=== PATIENT | male | born 1985 | race Caucasian/White ===

== ENCOUNTER 2016-06-06 19:35 | Emergency (ER) | payer OTHER ==
[2016-06-06 19:35] VITALS: BMI 20.1
[2016-06-06 19:53] VITALS: RESP 16; TEMP 98.8
[2016-06-06] MEDS ORDERED: Oxycodone/Acetaminophen 5/325 mg Tab PO STA (19:57)
--- NOTE | 2016-06-06 20:03 | ED PDOC ---
Arrival/HPI - General Chief Complaint: Dental Pain Time Seen by Provider: 06/06/16 19:55 Historian: Patient - History of Present Illness Narrative History of Present Illness (Text): 06/06/16 19:59 30 y/o male, no pmh, nkda, c/o lt. upper molar pain x 2 days with no fall or trauma. aching pain, aggravated by chewing, no pain medications taken at home, no fever or chills, feels the left sided facial is swollen, no night sweat, no dizziness, no fever or chills, no other medical or psychological complaints. Past Medical History - Provider Review Nursing Documentation Reviewed: Yes - Past Medical History Past Medical History: No Previous - Psychiatric Hx Psychophysiologic Disorder: No Hx Substance Use: No - Past Surgical History Past Surgical History: No Previous - Surgical History Hx Appendectomy: Yes Hx Tonsillectomy: Yes - Anesthesia Hx Anesthesia: Yes Hx Anesthesia Reactions: No Hx Malignant Hyperthermia: No - Suicidal Assessment Feels Threatened In Home Enviroment: No Family/Social History - Physician Review Nursing Documentation Reviewed: Yes Family/Social History: Unknown Family HX Smoking Status: Never Smoked Hx Alcohol Use: No Hx Substance Use: No Hx Substance Use Treatment: No Allergies/Home Meds Allergies/Adverse Reactions: Allergies No Known Allergies Allergy (Verified 06/06/16 19:46) Review of Systems - Review of Systems Constitutional: absent: Fatigue, Fevers ENT: Other (toothache) Respiratory: absent: SOB, Cough Cardiovascular: absent: Chest Pain Gastrointestinal: absent: Abdominal Pain, Diarrhea, Nausea, Vomiting Neurological: absent: Headache, Dizziness, Focal Weakness, Gait Changes, Speech Changes, Facial Droop, Disequilibrium, Seizure Physical Exam Vital Signs Reviewed: Yes Vital Signs Temp Pulse Resp BP Pulse Ox 06/06/16 20:19 80 16 98 06/06/16 20:15 80 16 138/99 H 97 06/06/16 19:47 98.8 F 79 16 157/105 H 99 Temperature: Afebrile Blood Pressure: Hypertensive Pulse: Regular Respiratory Rate: Normal Appearance: Positive for: Well-Appearing, Non-Toxic, Uncomfortable Pain Distress: Severe Mental Status: Positive for: Alert and Oriented X 3 - Systems Exam Head: Present: Atraumatic, Normocephalic Pupils: Present: PERRL Mouth: Present: Moist Mucous Membranes, Normal Lips, Normal Tounge, Other ( visible dental caries with cracked lt. upper molar and brown discoloration with mild lt. facial swelling but no facial cellulitis or streaking, no ulcers. ). No: Drooling, Trismus Pharnyx: No: ERYTHEMA, EXUDATE, TONSILS ENLARGED, Uvular Deviation, Muffled/ Hoarse Voice, Strider, Soft Palate/Uvular Edema Neck: Present: Normal Range of Motion, Trachea Midline. No: MIDLINE TENDERNESS , Paraspinal Tenderness, Lymphadenopathy Respiratory/Chest: Present: Clear to Auscultation, Good Air Exchange Cardiovascular: Present: Regular Rate and Rhythm, Normal S1, S2 Abdomen: Present: Normal Bowel Sounds. No: Tenderness, Distention Neurological: Present: GCS=15, Speech Normal, Motor Func Grossly Intact, Gait Normal, Memory Normal Skin: Present: Warm, Dry, Normal Color. No: Rashes Lymphatic: No: Cervical Adenopathy Psychiatric: Present: Alert, Oriented x 3, Normal Insight, Normal Concentration Medical Decision Making ED Course and Treatment: 06/06/16 20:02 -toradol IM, percocet, clindamycin 150mg po, viscous lido for swish and spit. -observe and reassess Discharge home with augmentin, ibuprofen, salt water gargling, soft food diet, stay hydrated, follow up with your own pmd and dentist within 2 days, return to the ER for any new or worsening signs or symptoms. - Medication Orders Current Medication Orders: Discontinued Medications Clindamycin HCl (Cleocin) 150 mg PO STAT STA PRN Reason: Protocol Stop: 06/06/16 19:58 Last Admin: 06/06/16 20:18 Dose: 150 MG Ketorolac Tromethamine (Toradol) 60 mg IM STAT STA Stop: 06/06/16 19:58 Last Admin: 06/06/16 20:18 Dose: 60 MG IM Administration Charges Document 06/06/16 20:18 [email or web address] (Rec: 06/06/16 20:18 [email or web address] [id number]) Injection Site MAR Injection Site Right Gluteus Farhan Charges for Administration # of IM Administrations 1 Lidocaine HCl (Lidocaine 2% Viscous) 15 ml PO STAT STA Stop: 06/06/16 19:58 Last Admin: 06/06/16 20:18 Dose: 15 ML Oxycodone/Acetaminophen (Percocet 5/325 Mg Tab) 1 tab PO STAT STA Stop: 06/06/16 19:58 Last Admin: 06/06/16 20:18 Dose: 1 TAB - PA / DEVELOPMENT ARCHITECT / Resident Statement / has reviewed & agrees with the documentation as recorded. Disposition/Present on Arrival - Present on Arrival Any Indicators Present on Arrival: No History of DVT/PE: No History of Uncontrolled Diabetes: No Urinary Catheter: No History of Decub. Ulcer: No History Surgical Site Infection Following: None - Disposition Have Diagnosis and Disposition been Completed?: Yes Diagnosis: Dental caries, Pain, dental Disposition: HOME/ ROUTINE Disposition Time: 20:04 Patient Plan: Discharge Condition: GOOD Additional Instructions: Discharge home with augmentin, ibuprofen, salt water gargling, soft food diet, stay hydrated, follow up with your own pmd and dentist within 2 days, return to the ER for any new or worsening signs or symptoms. Prescriptions: Amoxicillin/Clavulanate [Augmentin 875 MG-125 MG] 1 tab PO BID #20 tab Ibuprofen [Motrin Tab] 800 mg PO TID PRN #21 tab PRN Reason: Other Referrals: [facility] at [facility] [Outside] - Follow up with primary Will Strauss DMD [Staff Provider] - Follow up with primary Forms: WORK NOTE
[2016-06-06 20:15] VITALS: BP 138/99; PULSE 80
[2016-06-06 20:19] VITALS: O2SAT 98
== END 2016-06-06 20:19 | disposition home or self-care (01) ==
LOC: ED 19:35
DX: K02.9 Dental caries, unspecified (principal); K08.89 Other specified disorders of teeth and supporting structures
CPT/HCPCS: 96372; 99282; J1885

== ENCOUNTER 2016-06-07 09:21 | Emergency (ER) | payer OTHER ==
[2016-06-07 09:22] VITALS: BMI 20.1
[2016-06-07] MEDS ORDERED: Sodium Chloride 0.9% 1,000 ML IV STA ×2 (10:14→13:47)
[2016-06-07 10:58] LABS: HEMATOCRIT 38.1 % (42.0-52.0); MEAN CELL VOLUME 82.5 fL (80.0-105.0); MEAN CORPUSCULAR HGB CONC 35.2 g/dl (31.0-37.0); MEAN PLATELET VOLUME 10.1 fl (7.0-11.0); PLATELET COUNT 160 10^3/uL (120.0-450.0)
[2016-06-07 11:00] LABS: ADD MANUAL DIFF? YES
[2016-06-07 11:05] LABS: ALB/GLOB RATIO 1.1 (1.1-1.8); ALKALINE PHOSPHATASE 79 U/L (38-133); ALT/SGPT 47 U/L (7-56); AST/SGOT 32 U/L (15-59); BILIRUBIN,TOTAL 1.8 mg/dL (0.2-1.3); BLOOD UREA NITROGEN 17 mg/dL (7-21); CALCIUM 8.8 mg/dL (8.4-10.5); CARBON DIOXIDE 25 mmol/L (21-33); CHLORIDE 102 mmol/L (98-107); GFR AFRICAN-AMERICAN > 60; GLUCOSE,RANDOM 114 mg/dL (70-110); POTASSIUM 3.5 mmol/L (3.6-5.0); SODIUM 137 mmol/L (132-148); TOTAL PROTEIN 7.7 g/dL (5.8-8.3)
[2016-06-07 11:55] VITALS: TEMP 99.6
[2016-06-07] MEDS ORDERED: Iohexol 350 MG/100 ML VIAL ONE (12:03)
[2016-06-07 12:21] LABS: BAND 2 % (0-2); NEUTROPHIL 92 % (50.0-70.0); PLATELET ESTIMATE NORMAL (NORMAL)
--- NOTE | 2016-06-07 12:27 | ED PDOC ---
Arrival/HPI - General Historian: Patient - General Chief Complaint: GI Problem Time Seen by Provider: 06/07/16 10:14 - History of Present Illness Narrative History of Present Illness (Text): 06/07/16 12:23 30-year-old male presents today with fever body aches vomiting and left-sided tooth pain and swelling. Patient states for the past 2-3 days he's had pain to the left upper tooth. Patient states he was seen in the emergency room yesterday and started on antibiotics. Patient states he woke up today with body aches fever and vomiting 5 times. He denies abdominal pain. Denies chest pain or shortness of breath. Denies cough or nasal congestion. No medications have been taken for pain/fever at home. No sick contacts at home. Patient complaining only of pain to the left upper molar. (France Osborne) Past Medical History - Provider Review Nursing Documentation Reviewed: Yes - Travel History Have you recently traveled outside [place] w/in the past 3 mons?: No - Infectious Disease Hx of Infectious Diseases: None - Past Medical History Past Medical History: No Previous - Psychiatric Hx Psychophysiologic Disorder: No Hx Substance Use: No - Past Surgical History Past Surgical History: No Previous - Surgical History Hx Appendectomy: Yes Hx Tonsillectomy: Yes - Anesthesia Hx Anesthesia: Yes Hx Anesthesia Reactions: No Hx Malignant Hyperthermia: No - Suicidal Assessment Feels Threatened In Home Enviroment: No Family/Social History - Physician Review Nursing Documentation Reviewed: Yes Family/Social History: Unknown Family HX Smoking Status: Never Smoked Hx Alcohol Use: No Hx Substance Use: No Hx Substance Use Treatment: No Allergies/Home Meds Allergies/Adverse Reactions: Allergies No Known Allergies Allergy (Verified 06/06/16 19:46) Review of Systems - Review of Systems Constitutional: Fatigue, Fevers ENT: Other (Left upper molar pain, facial swelling). absent: Sore Throat, Rhinorrhea, Epistaxis, Sinus Congestion Respiratory: absent: SOB, Cough Cardiovascular: absent: Chest Pain, Palpitations Gastrointestinal: absent: Abdominal Pain, Nausea, Vomiting Genitourinary Male: absent: Dysuria Skin: absent: Rash, Pruritis Neurological: Headache. absent: Dizziness Psychiatric: absent: Anxiety, Depression Physical Exam Vital Signs Reviewed: Yes Temperature: Febrile Blood Pressure: Normal Pulse: Tachycardic Respiratory Rate: Normal Appearance: Positive for: Well-Appearing, Non-Toxic, Comfortable Pain Distress: None Mental Status: Positive for: Alert and Oriented X 3 - Systems Exam Head: Present: Atraumatic Pupils: Present: PERRL Extroacular Muscles: Present: EOMI Conjunctiva: Present: Normal Ears: Present: Normal, NORMAL TM Mouth: Present: Moist Mucous Membranes, Normal Lips, Normal Tounge. No: Drooling, Trismus, Normal Teeth (+ left upper molar tenderness, gingival swelling, erythema approx #14 tooth. + edema noted to left cheek. no erythema. ) Pharnyx: Present: Normal. No: ERYTHEMA, EXUDATE, TONSILS ENLARGED, Peritonsilar Swelling, Uvular Deviation, Muffled/Hoarse Voice Nose (External): Present: Atraumatic Nose (Internal): Present: Normal Inspection Neck: Present: Normal Range of Motion, Trachea Midline. No: Lymphadenopathy Respiratory/Chest: Present: Clear to Auscultation, Good Air Exchange. No: Respiratory Distress, Accessory Muscle Use Cardiovascular: Present: Regular Rate and Rhythm Abdomen: Present: Normal Bowel Sounds. No: Tenderness, Distention, Peritoneal Signs, Rebound, Guarding Back: Present: Normal Inspection. No: Midline Tenderness, Paraspinal Tenderness Upper Extremity: Present: Normal Inspection Lower Extremity: Present: Normal Inspection Neurological: Present: GCS=15, Speech Normal Skin: Present: Warm, Dry, Normal Color. No: Rashes Psychiatric: Present: Alert, Oriented x 3 Vital Signs Temp Pulse Resp BP Pulse Ox 06/07/16 14:06 86 97 H 113/70 97 06/07/16 11:55 99.6 F 06/07/16 09:28 103 F H 111 H 20 97 Medical Decision Making ED Course and Treatment: 06/07/16 12:32 30yr old male with high fevers/chills, vomiting since this morning. also with left sided dental abscess. did not fill abx rx from yesterday pt with fever 103 in ER. toradol, tylenol, zofran and IV fluids given cbc: wbc; 9.0 cmp; k; 3.5 UA: no leukocytes rapid flu; negative Ct maxillofacial; FINDINGS: NASAL BONES: Unremarkable. ORBITS: Unremarkable. PARANASAL SINUSES/ MASTOIDS: Clear. MAXILLA: There are some subcutaneous inflammatory changes on the left side adjacent to the maxilla. There is no evidence of a discrete abscess. There is a periapical lucency and collection of air on the left posterior maxilla seen on image 68 series 4 and coronal image 90. There is some bony dehiscence. This is consistent with a dental abscess MANDIBLE/ TEMPOROMANDIBULAR JOINTS: Unremarkable. SKULL BASE: Unremarkable. TEMPORAL BONES: Middle ears and mastoid grossly unremarkable. OTHER FINDINGS: None. IMPRESSION: Periapical lucency in the posterior left maxilla consistent with dental abscess. There is some adjacent subcutaneous inflammation. There is no evidence of a soft tissue abscess 06/07/16 14:27 Patient nontoxic well-appearing no distress. Vital signs are stable. I have discussed all results in depth with the patient using the [employer] cellular phone repairer #[id number]. clindamycin ordered IV Case discussed in depth with a dentist Dr. Strauss; dr. strauss will see the patient in the office after dose of IV clindamycin. I again spoke with the patient using [employer] cellular phone repairer #[id number]. I've advised the patient to take the clindamycin that was prescribed to him yesterday. I have advised going directly to the dentist today. I've advised immediate return if symptoms worsen or persist or if new concerning symptoms develop. Patient verbalizes understanding of discharge instructions and need for immediate followup. Case was discussed with Dr. Danielson in depth; impression; dental abscess, fever motrin every 6 hours as needed for pain/fever. percocet 1 tablet every 6 hours as needed for moderate to severe pain: May cause drowsiness clindamcyin 3 times daily x 7days Go directly to dr. strauss office (dentist) Return immediately if symptoms worsen,persist or if new symptoms develop. (Franec Osborne) - Lab Interpretations Lab Results: 06/07/16 10:30 06/07/16 10:30 Lab Results 06/07/16 13:00: Urine Color Yellow, Urine Appearance Clear, Urine pH 5.5, Ur Specific [place] 1.025, Urine Protein Negative, Urine Glucose (UA) Negative, Urine Ketones Trace H, Urine Blood Small H, Urine Nitrate Negative, Urine Bilirubin Negative, Urine Urobilinogen 0.2, Ur Leukocyte Esterase Negative, Urine RBC 15 - 20, Urine WBC 2 - 5, Ur Epithelial Cells 6 - 8 06/07/16 10:30: WBC 9.0 D, RBC 4.62, Hgb 13.4 L, Hct 38.1 L, MCV 82.5, MCH 29.0 , MCHC 35.2, RDW 13.0, Plt Count 160, MPV 10.1, Neutrophils % (Manual) 92 H, Band Neutrophils % 2, Lymphocytes % (Manual) 4 L, Monocytes % (Manual) 2, Platelet Evaluation Normal, Sodium 137, Potassium 3.5 L, Chloride 102, Carbon Dioxide 25, Anion Gap 14, BUN 17, Creatinine 0.8, Est GFR ( Amer) > 60, Est GFR (Non-Af Amer) > 60, Random Glucose 114 H, Calcium 8.8, Total Bilirubin 1.8 H, AST 32, ALT 47, Alkaline Phosphatase 79, Total Protein 7.7, Albumin 4.1, Globulin 3.6, Albumin/Globulin Ratio 1.1, Influenza Typ A,B (EIA) Negative for flu a/b - RAD Interpretation Radiology Orders: 06/07/16 11:55 MAXILLOFACIAL W/CONTRAST [CT] Stat - Medication Orders Current Medication Orders: Sodium Chloride (Sodium Chloride 0.9%) 1,000 mls @ 999 mls/hr IV .Q1H1M STA Stop: 06/07/16 14:47 Last Admin: 06/07/16 14:11 Dose: 999 MLS/HR eMAR Start Stop Document 06/07/16 14:11 SF (Rec: 06/07/16 14:11 SF [email or web address]) Intravenous Solution Start Date 06/07/16 Start Time 14:11 End Date 06/07/16 End time 15:12 Total Infusion Time 61 Oxycodone/Acetaminophen (Percocet 5/325 Mg Tab) 1 tab PO STAT STA Stop: 06/07/16 14:35 Discontinued Medications Acetaminophen (Tylenol 325mg Tab) 975 mg PO STAT STA Stop: 06/07/16 10:15 Last Admin: 06/07/16 10:45 Dose: 975 MG Clindamycin Phosphate (Cleocin) Confirm Administered Dose 600 mg .ROUTE .STK- MED ONE Stop: 06/07/16 14:15 Sodium Chloride (Sodium Chloride 0.9%) 1,000 mls @ 999 mls/hr IV .Q1H1M STA Stop: 06/07/16 11:14 Last Admin: 06/07/16 10:46 Dose: 999 MLS/HR eMAR Start Stop Document 06/07/16 10:46 SF (Rec: 06/07/16 10:46 SF [email or web address]) Intravenous Solution Start Date 06/07/16 Start Time 10:46 End Date 06/07/16 End time 11:47 Total Infusion Time 61 Clindamycin Phosphate 600 mg/ (Sodium Chloride) 54 mls @ 108 mls/hr IVPB STAT STA PRN Reason: Protocol Stop: 06/07/16 14:15 Iohexol (Omnipaque 350 100 Ml) Confirm Administered Dose 350 mg .ROUTE .STK-MED ONE Stop: 06/07/16 12:04 Ketorolac Tromethamine (Toradol) 30 mg IVP STAT STA Stop: 06/07/16 10:15 Last Admin: 06/07/16 10:46 Dose: 30 MG IVP Administration Document 06/07/16 10:46 SF (Rec: 06/07/16 10:46 SF [email or web address] Charges for Administration # of IVP Administrations 1 Ondansetron HCl (Zofran Inj) 4 mg IVP STAT STA Stop: 06/07/16 10:16 Last Admin: 06/07/16 10:45 Dose: 4 MG IVP Administration Document 06/07/16 10:45 SF (Rec: 06/07/16 10:45 SF [email or web address] Charges for Administration # of IVP Administrations 1 Disposition/Present on Arrival - Present on Arrival Any Indicators Present on Arrival: No History of DVT/PE: No History of Uncontrolled Diabetes: No Urinary Catheter: No History of Decub. Ulcer: No History Surgical Site Infection Following: None - Disposition Have Diagnosis and Disposition been Completed?: Yes Disposition Time: 14:32 Patient Plan: Discharge - Disposition Diagnosis: Dental abscess, Fever Disposition: HOME/ ROUTINE Patient Problems: Current Active Problems Problem Status Diagnosed Dental abscess Acute Fever Acute Condition: GOOD Discharge Instructions (ExitCare): Dental Abscess (ED), Fever in Adults (ED) Additional Instructions: motrin every 6 hours as needed for pain/fever. percocet 1 tablet every 6 hours as needed for moderate to severe pain: May cause drowsiness clindamcyin 3 times daily x 7days Go directly to dr. strauss office (dentist) Return immediately if symptoms worsen,persist or if new symptoms develop. Prescriptions: Clindamycin [Cleocin] 300 mg PO TID #21 cap oxyCODONE/Acetaminophen [Percocet 5/325 mg Tab] 1 tab PO Q6H PRN #10 tab PRN Reason: moderate to severe pain Referrals: Will Strauss DMD [Staff Provider] - Follow up with primary Kulwinder Heller MD [Staff Provider] - Follow up with primary [facility] at [facility] [Outside] - Follow up with primary Forms: WORK NOTE
[2016-06-07 13:17] LABS: PH,URINE 5.5 (4.7-8.0); URINE BILIRUBIN NEGATIVE (NEGATIVE); URINE BLOOD SMALL (NEGATIVE); URINE GLUCOSE (UA) NEGATIVE (NEGATIVE); URINE KETONE TRACE mg/dL (NEGATIVE); URINE LEUKOCYTE ESTERASE NEGATIVE Leu/uL (NEGATIVE); URINE PROTEIN NEGATIVE mg/dL (<30 mg/dL); URINE UROBILINOGEN 0.2 E.U./dL (<1 E.U./dL)
[2016-06-07 13:18] LABS: URINE APPEARANCE CLEAR (CLEAR); URINE COLOR YELLOW (YELLOW)
[2016-06-07 13:19] LABS: URINE RBC 15 - 20 /hpf (0-2)
--- NOTE | 2016-06-07 13:28 | CT ---
PROCEDURE: CT MAXILLOFACIAL BONES WITH CONTRAST HISTORY: fever/dental abscess COMPARISON: None. TECHNIQUE: Contiguous axial CT images of the maxillofacial bones were obtained following administration of IV contrast. Coronal and sagittal reformats were generated. Intravenous contrast Dose: 100 cc of Omni 350 Radiation dose: Total exam DLP = 792 mGy-cm. This CT exam was performed using one or more of the following dose reduction techniques: Automated exposure control, adjustment of the mA and/or kV according to patient size, and/or use of iterative reconstruction technique. FINDINGS: NASAL BONES: Unremarkable. ORBITS: Unremarkable. PARANASAL SINUSES/ MASTOIDS: Clear. MAXILLA: There are some subcutaneous inflammatory changes on the left side adjacent to the maxilla. There is no evidence of a discrete abscess. There is a periapical lucency and collection of air on the left posterior maxilla seen on image 68 series 4 and coronal image 90. There is some bony dehiscence. This is consistent with a dental abscess MANDIBLE/ TEMPOROMANDIBULAR JOINTS: Unremarkable. SKULL BASE: Unremarkable. TEMPORAL BONES: Middle ears and mastoid grossly unremarkable. OTHER FINDINGS: None. IMPRESSION: Periapical lucency in the posterior left maxilla consistent with dental abscess. There is some adjacent subcutaneous inflammation. There is no evidence of a soft tissue abscess
[2016-06-07] MEDS ORDERED: Clindamycin 150 mg/mL Inj ONE (14:14)
[2016-06-07] MEDS ORDERED: Oxycodone/Acetaminophen 5/325 mg Tab PO STA (14:34)
[2016-06-07 19:50] VITALS: BP 114/70; PULSE 94; RESP 18; O2SAT 99
== END 2016-06-07 15:45 | disposition home or self-care (01) ==
LOC: ED 09:21
DX: K04.7 Periapical abscess without sinus (principal); R50.9 Fever, unspecified
CPT/HCPCS: 70488; 80053; 81001; 85025; 87804; 96361; 96365; 96375; 99284; J1885; J2405; J7040; Q9967

== ENCOUNTER 2017-07-01 17:25 | Emergency (ER) | payer OTHER ==
[2017-07-01 17:29] VITALS: BMI 22.0
[2017-07-01 17:32] VITALS: TEMP 97.9
[2017-07-01] MEDS ORDERED: Sodium Chloride 0.9% 1,000 ML IV STA (17:37)
--- NOTE | 2017-07-01 17:42 | ED PDOC ---
Arrival/HPI - General Historian: Patient <Zack Garcia A - Last Filed: 07/01/17 19:08> <Chandana Chun - Last Filed: 07/01/17 19:58> - General Chief Complaint: Back Pain Time Seen by Provider: 07/01/17 17:26 - History of Present Illness Narrative History of Present Illness (Text): 07/01/17 17:39 31yo male with no PMHx who present with 4days history of right flank and b/l mid back pain. He admits to urinary hesitancy. He did not take any medication. No relieving/exacerbating factors. Denies urinary frequency, dysuria, hematuria , fever, chills, nausea, vomiting, diarrhea, constipation, sick contact, any other complaint. (Zack Garcia A) Past Medical History - Provider Review Nursing Documentation Reviewed: Yes - Infectious Disease Hx of Infectious Diseases: None - Past Medical History Past Medical History: No Previous - Psychiatric Hx Psychophysiologic Disorder: No Hx Substance Use: No - Past Surgical History Past Surgical History: No Previous - Surgical History Hx Appendectomy: Yes Hx Tonsillectomy: Yes - Anesthesia Hx Anesthesia: Yes Hx Anesthesia Reactions: No Hx Malignant Hyperthermia: No - Suicidal Assessment Feels Threatened In Home Enviroment: No <Zack Garcia A - Last Filed: 07/01/17 19:08> Family/Social History - Physician Review Nursing Documentation Reviewed: Yes Family/Social History: Unknown Family HX Smoking Status: Never Smoked Hx Alcohol Use: No Hx Substance Use: No Hx Substance Use Treatment: No <Zack Garcia A - Last Filed: 07/01/17 19:08> Allergies/Home Meds <Zack Garcia A - Last Filed: 07/01/17 19:08> <Chandana Chun - Last Filed: 07/01/17 19:58> Allergies/Adverse Reactions: Allergies No Known Allergies Allergy (Verified 06/06/16 19:46) Review of Systems - Physician Review All systems were reviewed & negative as marked: Yes - Review of Systems Constitutional: Normal Eyes: Normal ENT: Normal Respiratory: Normal Cardiovascular: Normal Gastrointestinal: Abdominal Pain. absent: Constipation, Diarrhea, Nausea, Vomiting, Hematochezia, Hematemesis Genitourinary Male: Normal Musculoskeletal: Normal Skin: Normal Neurological: Normal Endocrine: Normal Hemo/Lymphatic: Normal Psychiatric: Normal <Diru,Happiness A - Last Filed: 07/01/17 19:08> Physical Exam Vital Signs Reviewed: Yes Temperature: Afebrile Blood Pressure: Normal Pulse: Regular Respiratory Rate: Normal Appearance: Positive for: Well-Appearing, Non-Toxic, Comfortable Pain Distress: None Mental Status: Positive for: Alert and Oriented X 3 - Systems Exam Head: Present: Atraumatic, Normocephalic Pupils: Present: PERRL Extroacular Muscles: Present: EOMI Conjunctiva: Present: Normal Mouth: Present: Moist Mucous Membranes Neck: Present: Normal Range of Motion Respiratory/Chest: Present: Clear to Auscultation, Good Air Exchange. No: Respiratory Distress, Accessory Muscle Use Cardiovascular: Present: Regular Rate and Rhythm, Normal S1, S2. No: Murmurs Abdomen: Present: Tenderness (Right flank), Other (Soft). No: Distention, Peritoneal Signs, Rebound, Guarding, McBurney's Point Tender, Rovsing's Sign Present Back: Present: CVA Tenderness (B/L worse on the right) Upper Extremity: Present: Normal Inspection. No: Cyanosis, Edema Lower Extremity: Present: Normal Inspection. No: Edema Neurological: Present: GCS=15, CN II-XII Intact, Speech Normal Skin: Present: Warm, Dry, Normal Color. No: Rashes Psychiatric: Present: Alert, Oriented x 3, Normal Insight, Normal Concentration <Diru,Happiness A - Last Filed: 07/01/17 19:08> Vital Signs Temp Pulse Resp BP Pulse Ox 07/01/17 19:09 72 99 07/01/17 19:06 72 17 123/81 99 07/01/17 17:31 97.9 F 76 18 125/85 97 Medical Decision Making <Diru,Happiness A - Last Filed: 07/01/17 19:08> <Chandana Chun - Last Filed: 07/01/17 19:58> ED Course and Treatment: 07/01/17 19:09 PT present to ED for stated history. His pain was controlled in ED with medication and hydration. Lab was unremarkable. Abdominal/Pelvic CT IMPRESSION: Findings consistent with constipation. The appendix is not seen with certainty on this study however no obvious inflammatory changes right lower quadrant of the abdomen. Note however that given the patient's history of right-sided flank pain, the possibility of an acute appendicitis cannot be excluded. Clinical correlation history, physical exam and laboratory results. No evidence of nephrolithiasis or hydronephrosis. Result was DW the pt. He was DC home with miralax for constipation and ibuprofen for his pain. Referred to his PMD. TRT ED for any new or worsening symptoms. (Jose,Zack A) - Lab Interpretations Lab Results: 07/01/17 18:15 07/01/17 18:15 Lab Results 07/01/17 18:29: Urine Color Yellow, Urine Appearance Clear, Urine pH 6.0, Ur Specific [place] 1.025, Urine Protein Negative, Urine Glucose (UA) Negative, Urine Ketones Negative, Urine Blood Negative, Urine Nitrate Negative, Urine Bilirubin Negative, Urine Urobilinogen 0.2, Ur Leukocyte Esterase Negative 07/01/17 18:15: Sodium 146, Potassium 4.0, Chloride 105, Carbon Dioxide 27, Anion Gap 18, BUN 19, Creatinine 0.9, Est GFR ( Amer) > 60, Est GFR (Non- Af Amer) > 60, Random Glucose 91, Calcium 9.3, Magnesium 2.0, Total Bilirubin 1.2, AST 31, ALT 44, Alkaline Phosphatase 70, Total Protein 8.1, Albumin 4.8, Globulin 3.4, Albumin/Globulin Ratio 1.4, Lipase 59 07/01/17 18:15: PT 12.4, INR 1.09 H, APTT 29.6 07/01/17 18:15: WBC 4.8 D, RBC 5.36, Hgb 15.3, Hct 44.0, MCV 82.1, MCH 28.5, MCHC 34.8, RDW 13.3, Plt Count 231, MPV 9.7, Gran % 34.9 L, Lymph % (Auto) 51.8 H, [place] % (Auto) 10.8 H, Eos % (Auto) 2.1, Baso % (Auto) 0.4, Gran # 1.68, Lymph # (Auto) 2.5, [place] # (Auto) 0.5, Eos # (Auto) 0.1, Baso # (Auto) 0.02 - RAD Interpretation Radiology Orders: 07/01/17 17:36 ABD & PELVIS W/O PO OR IV CONT [CT] Stat - Medication Orders Current Medication Orders: Discontinued Medications Sodium Chloride (Sodium Chloride 0.9%) 1,000 mls @ 1,000 mls/hr IV .Q1H STA Stop: 07/01/17 18:36 Last Admin: 07/01/17 18:17 Dose: 1,000 mls/hr eMAR Start Stop Document 07/01/17 18:17 SF (Rec: 07/01/17 18:17 SF [id number]) Intravenous Solution Start Date 07/01/17 Start Time 18:17 End Date 07/01/17 End time 19:17 Total Infusion Time 60 Ketorolac Tromethamine (Toradol) 30 mg IVP STAT STA Stop: 07/01/17 17:38 Last Admin: 07/01/17 18:18 Dose: 30 mg MAR Pain Assessment Document 07/01/17 18:18 SF (Rec: 07/01/17 18:18 [id number]) Pain Reassessment Is this a pain reassessment? Yes Sleep Is patient sleeping during reassessment? No Presence of Pain Presence of Pain Yes IVP Administration Document 07/01/17 18:18 SF (Rec: 07/01/17 18:18 [id number]) Charges for Administration # of IVP Administrations 1 - PA / ED[employer] HAND / Resident Statement MD/DO has reviewed & agrees with the documentation as recorded. <Chandana Chun - Last Filed: 07/01/17 19:58> Disposition/Present on Arrival - Present on Arrival Any Indicators Present on Arrival: No History of DVT/PE: No History of Uncontrolled Diabetes: No Urinary Catheter: No History of Decub. Ulcer: No History Surgical Site Infection Following: None - Disposition Have Diagnosis and Disposition been Completed?: Yes Disposition Time: 19:00 Patient Plan: Discharge <Zack Garcia - Last Filed: 07/01/17 19:08> <Chandana Chun - Last Filed: 07/01/17 19:58> - Disposition Diagnosis: Back pain, Constipation Disposition: HOME/ ROUTINE Condition: STABLE Discharge Instructions (ExitCare): Constipation, Adult (DC), Upper Back Pain Additional Instructions: Follow up with your doctor Eat high fiber foods Return to ED for any new or worsening symptoms Prescriptions: Ibuprofen [Motrin Tab] 600 mg PO Q6 #20 tab Polyethylene Glycol 3350 [Miralax] 119 gm PO BID #1 powder Referrals: Miguel Billings MD [Primary Care Provider] - Follow up with primary Forms: clinovo (I[place]ic)
[2017-07-01 18:33] LABS: BASO # 0.02 K/mm3 (0.0-2.0); BASO % 0.4 % (0.0-3.0); EOS # 0.1 (0.0-0.7); EOS % 2.1 % (1.5-5.0); GRAN # 1.68 (1.4-6.5); GRAN % 34.9 % (50.0-68.0); HEMOGLOBIN 15.3 g/dL (14.0-18.0); LYMPH # 2.5 (1.2-3.4); LYMPH % 51.8 % (22.0-35.0); MEAN CELL VOLUME 82.1 fl (80.0-105.0); MEAN CORPUSCULAR HEMOGLOBIN 28.5 pg (25.0-35.0); MEAN CORPUSCULAR HGB CONC 34.8 g/dl (31.0-37.0); MEAN PLATELET VOLUME 9.7 fl (7.0-11.0); MONO # 0.5 (0.1-0.6); MONO % 10.8 % (1.0-6.0); RBC 5.36 10^6/uL (3.5-6.1); RED CELL DISTRIBUTION WIDTH 13.3 % (11.5-14.5); WHITE BLOOD COUNT 4.8 10^3/ul (4.5-11.0)
[2017-07-01 18:36] LABS: URINE BILIRUBIN NEGATIVE (NEGATIVE); URINE BLOOD NEGATIVE (NEGATIVE); URINE GLUCOSE (UA) NEGATIVE (NEGATIVE); URINE LEUKOCYTE ESTERASE NEGATIVE Leu/uL (NEGATIVE); URINE PROTEIN NEGATIVE mg/dL (<30 mg/dL); URINE UROBILINOGEN 0.2 E.U./dL (<1 E.U./dL)
[2017-07-01 18:37] LABS: URINE APPEARANCE CLEAR (CLEAR); URINE COLOR YELLOW (YELLOW)
[2017-07-01 18:38] LABS: ALB/GLOB RATIO 1.4 (1.1-1.8); ALBUMIN 4.8 g/dL (3.0-4.8); ALT/SGPT 44 U/L (7-56); AST/SGOT 31 U/L (17-59); BLOOD UREA NITROGEN 19 mg/dL (7-21); CALCIUM 9.3 mg/dL (8.4-10.5); GFR AFRICAN-AMERICAN > 60; GFR NON-AFRICAN AMERICAN > 60; LIPASE 59 U/L (23-300)
[2017-07-01 18:39] LABS: INR 1.09 (0.93-1.08); PARTIAL THROMBOPLASTIN TIME 29.6 Seconds (25.1-36.5); PROTHROMBIN TIME 12.4 SECONDS (9.4-12.5)
--- NOTE | 2017-07-01 18:57 | CT ---
PROCEDURE: CT scan abdomen and pelvis dated 07/01/2017 HISTORY: Right flank/back pain COMPARISON: Comparison made with prior CT scan abdomen and pelvis dated 07/15/2014. TECHNIQUE: Contiguous helical/transaxial images of the abdomen and pelvis performed without oral or intravenous contrast material. Additional 2D sagittal and coronal reformats generated. This CT exam was performed using one or more of the following dose reduction techniques: Automated exposure control, adjustment of the mA and/or kV according to patient size, and/or use of iterative reconstruction technique. Radiation dose: Total exam DLP = 291.03 mGy-cm. This CT exam was performed using one or more of the following dose reduction techniques: Automated exposure control, adjustment of the mA and/or kV according to patient size, and/or use of iterative reconstruction technique. . FINDINGS: LOWER THORAX: Minor passive atelectasis both posterior lower lung zones. Lung bases are otherwise clear. No infiltrate effusion or basilar pneumothorax. There is a small hiatal hernia. LIVER: Unremarkable. No gross lesion or ductal dilatation. GALLBLADDER AND BILE DUCTS: Gallbladder is physiologically distended. No evidence of intraluminal gallbladder calculi. PANCREAS: Unremarkable. No mass. No ductal dilatation. SPLEEN: Unremarkable. No splenomegaly. ADRENALS: Unremarkable. KIDNEYS AND URETERS: Unremarkable. No stone or hydronephrosis. BLADDER: Urinary bladder incompletely distended which in part accounts for thick-walled appearance. Muscular hypertrophy presumably contributes. REPRODUCTIVE: Unremarkable. APPENDIX: The appendix is not seen with certainty on this study however no obvious inflammatory changes right lower quadrant of the abdomen. Note however that given the patient's history of right-sided flank pain, the possibility of an acute appendicitis cannot be excluded. Clinical correlation history, physical exam and laboratory results. BOWEL: Evaluation of the bowel is limited due to the lack of oral contrast material. Stomach is incompletely distended which in part accounts for thick-walled appearance. Visualized loops of small bowel exhibit normal contour and caliber however there does appear to be some fecalized content within the distal small bowel suggesting stasis. Large amount of stool is seen throughout the cecum at ascending and transverse colon and to a lesser degree descending colon consistent with fecal retention/ constipation. . No gross mural thickening. PERITONEUM: Unremarkable. No fluid collection. No free air. LYMPH NODES: Unremarkable. No enlarged lymph nodes. VASCULATURE: Unremarkable. No aortic aneurysm. BONES: No fracture or destructive lesion. OTHER FINDINGS: None. IMPRESSION: Findings consistent with constipation. The appendix is not seen with certainty on this study however no obvious inflammatory changes right lower quadrant of the abdomen. Note however that given the patient's history of right-sided flank pain, the possibility of an acute appendicitis cannot be excluded. Clinical correlation history, physical exam and laboratory results. No evidence of nephrolithiasis or hydronephrosis.
[2017-07-01 19:09] VITALS: BP 123/81; PULSE 72; RESP 17; O2SAT 99
== END 2017-07-01 19:09 | disposition home or self-care (01) ==
LOC: ED 17:25
DX: K59.00 Constipation, unspecified (principal); M54.9 Dorsalgia, unspecified
CPT/HCPCS: 74176; 80053; 81003; 83690; 83735; 85025; 85610; 85730; 96361; 96374; 99285; J1885; J7040

== ENCOUNTER 2018-07-18 15:42 | Outpatient (CLI) | payer MEDICAID | END 2018-07-18 15:43 | disposition home or self-care (01) | LOC: RAD 15:42 ==